=== PATIENT | female | born 1955 | race Caucasian/White ===

== ENCOUNTER 2020-08-05 15:31 | Outpatient (CLI) | payer OTHER, SELFPAY ==
--- NOTE | ~2020-08-05 | XR_ITS ---
XR abdomen/kub 1V DATE: 08/05/2020 16:03 INDICATION: Constipation for one to 2 weeks. TECHNIQUE: AP projection, 2 views COMPARISON: None FINDINGS: There is a prominent amount of fecal material throughout the colon, consistent with clinica l presentation of constipation. No bowel obstruction is evident. The psoas shadows are intact. No visceromegaly is detected. No significant abnormal calcification is noted. Mild rotatory dextroscoliosis of the lumbar spine. The lung bases are clear. Heart size appears normal. IMPRESSION: Prominent amount of fecal material throughout the colon, consistent with clinical present ation of constipation Reviewed, dictated and finalized at Location A. Reviewed, dictated and finalized at location B. ACCOUNTANT IMPRESSION: Prominent amount of fecal material throughout the colon, consistent with clinical presentation of constipation
== END 2020-08-05 15:32 | disposition home or self-care (01) ==
PROVIDERS: PCP Internal Medicine; Visit Provider Internal Medicine
DX: K59.00 Constipation, unspecified (principal)
CPT/HCPCS: 74018

== ENCOUNTER → 2020-08-18 10:25 | Outpatient (CLI) | payer OTHER, SELFPAY ==
--- NOTE | ~2020-08-18 | MM_ITS ---
EXAMINATION: MM diagnostic kaila BI w eleazar HISTORY: Left breast dimpling with inverted nipple. Possible increased inversion recently. TECHNIQUE: Additional 3-D tomosynthesis images of the breasts were performed and synthetic 2-D images were generated. CAD analysis was submitted and interpreted. High resolution bilateral breast ultraso und was performed. COMPARISON: Comparison to multiple prior studies sequentially, with oldest reviewed study dated 12/2015. BREAST PARENCHYMAL COMPOSITION: The breasts are extremely dense, which lowers the sensitivity of mamm ography. FINDINGS: MAMMOGRAPHIC FINDINGS: There is bilateral nipple inversion which appears unchanged from prior studies. There are benign bila teral breast calcifications. There are no new masses, calcifications or architectural distortion to s uggest malignancy. ULTRASOUND: Right breast ultrasound: At 2:00 there is an oval hypoechoic mass measuring 4 mm without significant posterior features. There is parallel orientation. At the same location there is a 6 mm oval hypoecho ic mass with circumscribed margins, enhanced through transmission and no internal vascularity. Left breast ultrasound: Normal heterogeneous echotexture without focal solid or cystic mass. IMPRESSION: 1. Probable benign right breast masses identified by ultrasound. 2. Recommend 6 month follow-up right breast ultrasound BI-RADS category 3, probably benign findings. Reviewed, dictated and finalized at location D. LING SPECIALIST
--- NOTE | ~2020-08-18 | DEXA_ITS ---
Bone Density Report Name: Indiana Hatch Age: 65 Sex: Female Ethnicity: White Date of : 1955 Indication: osteopenia; postmenopausal Referring Provider: CHESTER NIELSEN Study: Bone densitometry was performed. Exam Date: August 18, 2020 Accession number: [id number] Bone Density: Region BMD T-score Z-score Classification AP Spine (L1-L4) 0.772 -2.5 -0.8 Osteoporosis Femoral Neck (Left) 0.602 -2.2 -0.8 Osteopenia Total Hip (Left) 0.724 -1.8 -0.6 Osteopenia Femoral Neck (Right) 0.568 -2.5 -1.1 Osteoporosis Total Hip (Right) 0.662 -2.3 -1.1 Osteopenia Total Hip Mean 0.693 -2.1 -0.9 Osteopenia World Health Organization criteria for BMD impression classify patients as: Normal (T-score at or above -1.0), Osteopenia (T-score between -1.0 and -2.5), or Osteoporosis (T-score at or below -2.5). 10-year Fracture Risk: FRAX not reported because: Some T-score for Spine Total or Hip Total or Femoral Neck at or below -2.5 Previous Exams: Region Exam Age BMD T-score BMD Change BMD Change Date g/cm2 vs Baseline vs Previous AP Spine(L1-L4) 08/18/2020 65 0.772 -2.5 -0.165* -0.029* 03/19/2018 62 0.801 -2.2 -0.136* -0.005 01/14/2015 59 0.805 -2.2 -0.132* -0.002 11/28/2012 57 0.807 -2.2 -0.130* -0.083* 09/26/2010 55 0.890 -1.4 -0.047* -0.026* 09/23/2008 53 0.916 -1.2 -0.021 -0.021 08/02/2005 50 0.937 -1.0 Total Hip(Left) 08/18/2020 65 0.724 -1.8 -0.216* -0.006 03/19/2018 62 0.730 -1.7 -0.211* -0.068* 01/14/2015 59 0.798 -1.2 -0.143* 0.037* 11/28/2012 57 0.761 -1.5 -0.180* -0.063* 09/26/2010 55 0.824 -1.0 -0.117* 0.044* 09/23/2008 53 0.780 -1.3 -0.161* -0.161* 08/02/2005 50 0.941 0.0 Total Hip(Right) 08/18/2020 65 0.662 -2.3 -0.199* -0.002 03/19/2018 62 0.664 -2.3 -0.197* -0.072* 01/14/2015 59 0.736 -1.7 -0.125* 0.031* 11/28/2012 57 0.705 -1.9 -0.156* -0.040* 09/26/2010 55 0.745 -1.6 -0.116* 0.005 09/23/2008 53 0.740 -1.7 -0.121* -0.121* 08/02/2005 50 0.861 -0.7 *Denotes significance at 95% confidence level, LSC for AP Spine = 0.022 g/cm2, LSC for Total Hip = 0.027 g/cm2 Clinical Information Provided by Patient: Patient bekah
--- NOTE | ~2020-08-18 | US_ITS ---
Please refer to diagnostic mammogram report dated 08/18/2020 for details. Reviewed, dictated and finalized at location D. TER SET PRODUCTION DESIGNER
== END ==
PROVIDERS: PCP Internal Medicine; Visit Provider Obstetrics & Gynecology
DX: Z12.31 Encounter for screening mammogram for malignant neoplasm of breast (principal); Z78.0 Asymptomatic menopausal state; R92.8 Other abnormal and inconclusive findings on diagnostic imaging of breast; M81.0 Age-related osteoporosis without current pathological fracture; M85.852 Other specified disorders of bone density and structure, left thigh; M85.851 Other specified disorders of bone density and structure, right thigh
CPT/HCPCS: 76641; 77062; 77066; 77080; G0279

== ENCOUNTER → 2020-11-12 09:07 | Outpatient (CLI) | payer OTHER, SELFPAY ==
--- NOTE | ~2020-11-12 | US_ITS ---
US breast RT complete DATE: 11/12/2020 09:34 INDICATION: Short-term follow-up of 2:00 breast hypoechoic lesions TECHNIQUE: High-resolution ultrasound imaging and color flow imaging targeted to o'clock 4 cm from th e nipple COMPARISON: 08/18/2020 bilateral diagnostic digital mammogram and complete bilateral breast ultrasound examination FINDINGS: There are 2 hypoechoic lesions at 2:00 4 cm from the nipple, measuring up to approximately 5 and 6 mm maximal dimension, without internal vascularity or suspicious shadowing. These appear esse ntially stable compared to 08/18/2020. IMPRESSION: BI-RADS Category 3: Probably benign Recommendation: 6 month follow-up right breast ultrasound examination Reviewed, dictated and finalized at Location A. Reviewed, dictated and finalized at location A.
== END ==
PROVIDERS: PCP Internal Medicine; Visit Provider Obstetrics & Gynecology
DX: R92.8 Other abnormal and inconclusive findings on diagnostic imaging of breast (principal)
CPT/HCPCS: 76641

== ENCOUNTER → 2021-05-16 10:17 | Outpatient (CLI) | payer OTHER, SELFPAY ==
--- NOTE | ~2021-05-16 | US_ITS ---
US breast RT limited DATE: 05/16/2021 10:32 INDICATION: Six-month follow-up of 2 hypoechoic lesions at 2:00 4 cm from nipple noted on 11/12/2020 r ight breast ultrasound examination TECHNIQUE: Real-time imaging targeted at 2:00 region COMPARISON: 11/12/2020 complete right breast ultrasound 08/18/2020 bilateral complete breast ultrasound FINDINGS: Circumscribed hypoechoic lesion with through transmission and posterior enhancement at 2:00 4 cm from the nipple measuring 3.8 x 5.4 mm is slightly diminished in size from up to 6 mm dimension on 09/04/2020. No other suspicious mass or any suspicious shadowing is evident. IMPRESSION: BI-RADS Category 2: Benign Recommendation: Routine annual mammographic screening Reviewed, dictated and finalized at Location A. Reviewed, dictated and finalized at location A.
== END ==
PROVIDERS: PCP Internal Medicine; Visit Provider Obstetrics & Gynecology
DX: R92.8 Other abnormal and inconclusive findings on diagnostic imaging of breast (principal)
CPT/HCPCS: 76642

== ENCOUNTER → 2022-02-13 13:26 | Outpatient (CLI) | payer MEDICARE, OTHER, SELFPAY ==
--- NOTE | ~2022-02-13 | MM_ITS ---
EXAMINATION: MM screening [facility] BI w eleazar HISTORY: Screening mammogram TECHNIQUE: Craniocaudal and mediolateral oblique 3-D tomosynthesis images were obtained and synthetic 2-D images were generated. CAD analysis was submitted and interpreted. COMPARISON: 09/04/2020, 08/22/2018 BREAST PARENCHYMAL COMPOSITION: The breasts are extremely dense, which lowers the sensitivity of mamm ography. FINDINGS: Scattered benign-appearing calcifications are present. There is no suspicious mass, calcifi cation, or architectural distortion to suggest malignancy in either breast. There has been no suspici ous interval change. IMPRESSION: 1. No mammographic evidence of malignancy. 2. Recommend routine screening mammography in one year. BI-RADS Category 2: Benign finding(s). Reviewed, dictated and finalized at location A.
== END ==
PROVIDERS: PCP Internal Medicine; Visit Provider Obstetrics & Gynecology
DX: Z12.31 Encounter for screening mammogram for malignant neoplasm of breast (principal)
CPT/HCPCS: 77063; 77067

== ENCOUNTER → 2022-08-28 10:49 | Outpatient (CLI) | payer MEDICARE, OTHER, SELFPAY ==
--- NOTE | ~2022-08-28 | DEXA_ITS ---
Bone Density Report Name: DARREL REID Age: 67 Sex: Female Ethnicity: White Date of : 1955 Indication: postmenopausal osteoporosis; monitoring treatment; parental hip fracture; Referring Provider: CHESTER NIELSEN Study: Bone densitometry was performed. Exam Date: August 28, 2022 Accession number: [id number] Bone Density: Region BMD T-score Z-score Classification AP Spine (L1-L4) 0.809 -2.2 -0.3 Osteopenia Femoral Neck (Left) 0.609 -2.2 -0.6 Osteopenia Total Hip (Left) 0.745 -1.6 -0.3 Osteopenia Femoral Neck (Right) 0.590 -2.3 -0.8 Osteopenia Total Hip (Right) 0.688 -2.1 -0.8 Osteopenia Total Hip Mean 0.717 -1.9 -0.6 Osteopenia World Health Organization criteria for BMD impression classify patients as: Normal (T-score at or above -1.0), Osteopenia (T-score between -1.0 and -2.5), or Osteoporosis (T-score at or below -2.5). 10-year Fracture Risk: FRAX not reported because: Treated for osteoporosis Previous Exams: Region Exam Age BMD T-score BMD Change BMD Change Date g/cm2 vs Baseline vs Previous AP Spine(L1-L4) 08/28/2022 67 0.809 -2.2 -0.128* 0.037* 08/18/2020 65 0.772 -2.5 -0.165* -0.029* 03/19/2018 62 0.801 -2.2 -0.136* -0.005 01/14/2015 59 0.805 -2.2 -0.132* -0.002 11/28/2012 57 0.807 -2.2 -0.130* -0.083* 09/26/2010 55 0.890 -1.4 -0.047* -0.026* 09/23/2008 53 0.916 -1.2 -0.021 -0.021 08/02/2005 50 0.937 -1.0 Total Hip(Left) 08/28/2022 67 0.745 -1.6 -0.196* 0.021 08/18/2020 65 0.724 -1.8 -0.216* -0.006 03/19/2018 62 0.730 -1.7 -0.211* -0.068* 01/14/2015 59 0.798 -1.2 -0.143* 0.037* 11/28/2012 57 0.761 -1.5 -0.180* -0.063* 09/26/2010 55 0.824 -1.0 -0.117* 0.044* 09/23/2008 53 0.780 -1.3 -0.161* -0.161* 08/02/2005 50 0.941 0.0 Total Hip(Right) 08/28/2022 67 0.688 -2.1 -0.173* 0.026 08/18/2020 65 0.662 -2.3 -0.199* -0.002 03/19/2018 62 0.664 -2.3 -0.197* -0.072* 01/14/2015 59 0.736 -1.7 -0.125* 0.031* 11/28/2012 57 0.705 -1.9 -0.156* -0.040* 09/26/2010 55 0.745 -1.6 -0.116* 0.005 09/23/2008 53 0.740 -1.7 -0.121* -0.121* 08/02/2005 50 0.861 -0.7 *Denotes significance at 95% confidence level, [facility]
== END ==
PROVIDERS: PCP Family Medicine; Visit Provider Obstetrics & Gynecology
DX: Z78.0 Asymptomatic menopausal state (principal); M85.88 Other specified disorders of bone density and structure, other site; M85.852 Other specified disorders of bone density and structure, left thigh; M85.851 Other specified disorders of bone density and structure, right thigh
CPT/HCPCS: 77080

== ENCOUNTER → 2023-02-26 10:26 | Outpatient (CLI) | payer MEDICARE, OTHER, SELFPAY ==
--- NOTE | ~2023-02-26 | MM_ITS ---
EXAMINATION: MM screening kaila BI w eleazar HISTORY: Screening mammogram TECHNIQUE: Craniocaudal and mediolateral oblique 3-D tomosynthesis images were obtained and synthetic 2-D images were generated. CAD analysis was submitted and interpreted. COMPARISON: 02/13/2022 bilateral screening mammogram 05/16/2021 right Limited breast ultrasound 11/12/2020 complete right breast ultrasound 08/18/2020 diagnostic bilateral mammogram and complete bilateral breast ultrasound examination 04/24/2019 bilateral screening mammogram BREAST PARENCHYMAL COMPOSITION: The breasts are extremely dense, which lowers the sensitivity of mamm ography. FINDINGS: Biopsy marker on the right; history of prior benign right breast biopsy. Scattered bilateral benign calcifications. There is no evidence of suspicious mass, calcification, or architectural distortion to suggest malig henrietta in either breast. There has been no suspicious interval change. IMPRESSION: 1. No mammographic evidence of malignancy. 2. Recommend routine screening mammography in one year. BI-RADS Category 2: Benign finding(s). Reviewed, dictated and finalized at location A.
== END ==
PROVIDERS: PCP Family Medicine; Visit Provider Obstetrics & Gynecology
DX: Z12.31 Encounter for screening mammogram for malignant neoplasm of breast (principal)
CPT/HCPCS: 77063; 77067

== ENCOUNTER 2023-08-23 08:39 | Outpatient (CLI) | payer MEDICARE, OTHER, SELFPAY ==
[2023-08-23 19:10] LABS: Alanine Aminotransferase 19 U/L (6-35); Albumin Level 4.2 g/dL (3.5-5.1); Alkaline Phosphatase 49 U/L (38-126); Anion Gap 3 mmol/L (8-16); Aspartate Amino Transferase 36 U/L (14-36); Bilirubin,Total 0.8 mg/dL (0.2-1.3); Blood Urea Nitrogen 14 mg/dL (7-17); Calcium 9.6 mg/dL (8.4-10.2); Carbon Dioxide 31 mmol/L (22-30); Chloride 102 mmol/L (98-107); Cholesterol 218 mg/dL (0-200); Estimated Glomerular Filt Rate > 60; Glucose 95 mg/dL (65-110); HDL Direct 83 mg/dL; Potassium 4.3 mmol/L (3.4-5.0); Sodium 136 mmol/L (137-145); Triglycerides 61 mg/dL (<150)
[2023-08-23 19:20] LABS: LDL Cholesterol Direct 105 mg/dL
[2023-08-23 19:37] LABS: Basophils Percent Auto 0.9 % (0.2-1.2); Eosinophils Absolute Auto 0.1 K/mm3 (0-0.3); Eosinophils Percent Auto 1.4 % (0-4.4); Hematocrit 40.1 % (37.0-47.0); Hemoglobin 12.8 g/dL (12.0-15.0); Lymphocytes Absolute Auto 1.87 K/mm3 (0.9-3.2); Lymphocytes Percent Auto 53.7 % (18.3-44.2); Mean Corpuscular HGB Conc 31.9 g/dl (32-36); Mean Corpuscular Hemoglobin 30.3 pg (26-34); Mean Corpuscular Volume 94.8 fl (80-100); Mean Platelet Volume 10.2 fl (7.4-10.4); Monocytes Absolute Auto 0.2 K/mm3 (0.1-0.6); Monocytes Percent Auto 6.6 % (2.6-8.5); Neutrophils Absolute Auto 1.3 K/mm3 (1.3-6.7); Neutrophils Percent Auto 37.4 % (45.5-73.1); Platelet Count Result 224 k/mm3 (150-375); Red Blood Count 4.23 M/mm3 (4.2-5.4); Red Cell Distribution Width 13.3 % (11.5-14.5); White Blood Count 3.5 K/mm3 (4.5-10.0)
== END 2023-08-23 08:40 | disposition home or self-care (01) ==
LOC: ANHGOSHLAB 08:42
PROVIDERS: PCP Family Medicine; Visit Provider Family Medicine
DX: E78.5 Hyperlipidemia, unspecified (principal); R53.83 Other fatigue; Z13.228 Encounter for screening for other metabolic disorders; Z13.29 Encounter for screening for other suspected endocrine disorder
CPT/HCPCS: 36415; 80053; 80061; 84443; 85025

== ENCOUNTER 2024-03-18 15:20 | Outpatient (CLI) | payer MEDICARE, OTHER, SELFPAY ==
--- NOTE | ~2024-03-18 | MM_ITS ---
EXAMINATION: MM screening kaila BI w eleazra HISTORY: Screening TECHNIQUE: Craniocaudal and mediolateral oblique 3-D tomosynthesis images were obtained and synthetic 2-D images were generated. CAD analysis was submitted and interpreted. COMPARISON: Comparison to multiple prior studies sequentially, with oldest reviewed study dated 03/18. BREAST PARENCHYMAL COMPOSITION: Dense: The breasts are extremely dense, which lowers the sensitivity of mammography. FINDINGS: There is no evidence of suspicious mass, calcification, or architectural distortion to sugg est malignancy in either breast. There has been no suspicious interval change. IMPRESSION: 1. No mammographic evidence of malignancy. 2. Recommend routine screening mammography in one year. BI-RADS Category 1: Negative Reviewed, dictated and finalized at location B.
== END 2024-03-18 15:21 | disposition home or self-care (01) ==
PROVIDERS: PCP Family Medicine; Visit Provider Obstetrics & Gynecology
DX: Z12.31 Encounter for screening mammogram for malignant neoplasm of breast (principal)
CPT/HCPCS: 77063; 77067

== ENCOUNTER 2024-11-19 10:11 | Outpatient (CLI) | payer MEDICARE, OTHER, SELFPAY ==
--- NOTE | ~2024-11-19 | DEXA_ITS ---
Bone Density Report Name: DARREL REID Age: 69 Sex: Female Ethnicity: White Date of : 1955 Indication: osteopenia; monitoring treatment; parental hip fracture; height loss; Referring Provider: CHESTER NIELSEN Study: Bone densitometry was performed. Exam Date: November 19, 2024 Accession number: [id number] Bone Density: Region BMD T-score Z-score Classification AP Spine(L1-L4) 0.798 -2.3 -0.3 Osteopenia Femoral Neck (Left) 0.620 -2.1 -0.4 Osteopenia Total Hip (Left) 0.747 -1.6 -0.2 Osteopenia Femoral Neck (Right) 0.572 -2.5 -0.8 Osteoporosis Total Hip (Right) 0.679 -2.2 -0.7 Osteopenia Total Hip Mean 0.713 -1.9 -0.5 Osteopenia World Health Organization criteria for BMD impression classify patients as: Normal (T-score at or above -1.0), Osteopenia (T-score between -1.0 and -2.5), or Osteoporosis (T-score at or below -2.5). 10-year Fracture Risk: FRAX not reported because: Some T-score for Spine Total or Hip Total or Femoral Neck at or below -2.5 Treated for osteoporosis Previous Exams: -- Region Exam Age BMD T-score BMD Change BMD Change Date g/cm2 vs Baseline vs Previous -- AP Spine (L1-L4) 11/19/2024 69 0.798 -2.3 -14.9%* -1.4% 08/28/2022 67 0.809 -2.2 -13.7%* 4.8%* 08/18/2020 65 0.772 -2.5 -17.6%* -3.6%* 03/19/2018 62 0.801 -2.2 -14.6%* -0.6% 01/14/2015 59 0.805 -2.2 -14.1%* -0.2% 11/28/2012 57 0.807 -2.2 -13.9%* -9.3%* 09/26/2010 55 0.890 -1.4 -5.0%* -2.9%* 09/23/2008 53 0.916 -1.2 -2.2% -2.2% 08/02/2005 50 0.937 -1.0 Total Hip(Left) 11/19/2024 69 0.747 -1.6 -20.6%* 0.2% 08/28/2022 67 0.745 -1.6 -20.8%* 2.9% 08/18/2020 65 0.724 -1.8 -23.0%* -0.8% 03/19/2018 62 0.730 -1.7 -22.4%* -8.5%* 01/14/2015 59 0.798 -1.2 -15.2%* 4.8%* 11/28/2012 57 0.761 -1.5 -19.1%* -7.6%* 09/26/2010 55 0.824 -1.0 -12.4%* 5.7%* 09/23/2008 53 0.780 -1.3 -17.1%* -17.1%* 08/02/2005 50 0.941 0.0 Total Hip(Right) 11/19/2024 69 0.679 -2.2 -21.1%* -1.3% 08/28/2022 67 0.688 -2.1 -20.1%* 4.0% 08/18/2020 65 0.662 -2.3 -23.1%* -0.3% 03/19/2018 62 0.664 -2.3 -22.9%* -9.8%* 01/14/2015 59 0.736 -1.7 -14.5%* 4.4%* 11/28/2012 57 0.705 -1.9 -18.1%* -5.4%* 09/26/2010 55 0.745 -1.6 -13.5%* 0.7% 09/23/2008 53 0.740 -1.7 -14.1%* -14.1%* 08/02/2005 50 0.861 -0.7 -- *Denotes significance at 95% confidence level, LSC for AP Spine = 0.022 g/cm2, LSC for Total Hip = 0.027 g/cm2 Clinical Information Provided by Patient: Parent has had a hip fracture Is being treated for osteoporosis Has used the following medications: Boniva (i.e. ibandronate), Vitamin D, Calcium Patient maximum height was 69 Menopause Age: 50 Onset of menses at age 14 Number of children 0 Impression: The patient has osteoporosis, based on the Right Femoral Neck T-score. The patient has risk factors, including: parental hip fracture. No significant bone loss was observed. Discussion: PATIENT UNDER TREATMENT WITH NO SIGNIFICANT BMD LOSS SINCE LAST EXAM. In an untreated patient, BMD typically declines with age. A lack of decline or gain is usually a sign that treatment is efficacious and fracture risk is reduced. It is important to ask patients whether they are taking their medications and to encourage continued and appropriate compliance with their osteoporosis therapies to reduce fracture risk. It is also important to review their risk factors and encourage appropriate calcium and vitamin D intakes, exercise, fall prevention and other lifestyle measures. Follow-Up: Consider a repeat BMD and Vertebral Fracture Assessment (VFA) exam in 2 years or sooner if medically necessary, to reassess this patient's status. Reported by: DAWNA on 11/19/2024 10:35:00 AM. Reviewed, dictated and finalized at location A.
== END 2024-11-19 10:12 | disposition home or self-care (01) ==
PROVIDERS: PCP Family Medicine; Visit Provider Obstetrics & Gynecology
DX: Z78.0 Asymptomatic menopausal state (principal); Z13.820 Encounter for screening for osteoporosis; M85.88 Other specified disorders of bone density and structure, other site; M85.852 Other specified disorders of bone density and structure, left thigh; M85.851 Other specified disorders of bone density and structure, right thigh; M81.0 Age-related osteoporosis without current pathological fracture
CPT/HCPCS: 77080

== ENCOUNTER 2025-04-29 09:44 | Outpatient (CLI) | payer MEDICARE, OTHER, SELFPAY ==
--- NOTE | ~2025-04-29 | MM_ITS ---
EXAMINATION: MM screening [facility] BI w eleazar HISTORY: Screening TECHNIQUE: Craniocaudal and mediolateral oblique 3-D tomosynthesis images were obtained and synthetic 2-D images were generated. CAD analysis was submitted and interpreted. COMPARISON: Comparison to multiple prior studies sequentially, with oldest reviewed study dated 03/06/2018. BREAST PARENCHYMAL COMPOSITION: Dense: The breasts are extremely dense, which lowers the sensitivity of mammography. FINDINGS: There is a new mass in the upper outer quadrant of the right breast, posterior third. There are adjacent punctate indeterminate calcifications. The left breast is stable without evidence for malignancy. IMPRESSION: 1. New right breast mass upper outer quadrant, posterior third. 2. Spot MLO, exaggerated CC and mediolateral views of the right breast with possible additional ultrasound recommended. BI-RADS Category 0: Incomplete: Needs additional imaging evaluation. Reviewed, dictated and finalized at location B. ITY COORDINATOR IMPRESSION: 1. New right breast mass upper outer quadrant, posterior third. 2. Spot MLO, exaggerated CC and mediolateral views of the right breast with pos sible additional ultrasound recommended. BI-RADS Category 0: Incomplete: Needs additional imaging evaluation.
== END 2025-04-29 09:45 | disposition home or self-care (01) ==
LOC: MICIMG 09:46
PROVIDERS: PCP Obstetrics & Gynecology; Visit Provider Family Medicine
DX: Z12.31 Encounter for screening mammogram for malignant neoplasm of breast (principal); R92.8 Other abnormal and inconclusive findings on diagnostic imaging of breast
CPT/HCPCS: 77063; 77067

== ENCOUNTER 2025-06-09 09:35 | Outpatient (CLI) | payer MEDICARE, OTHER, SELFPAY ==
--- NOTE | ~2025-06-09 | MMUS_ITS ---
EXAMINATION: MM diagnostic kaila RT w eleazar, Additional imaging US, US breast RT limited HISTORY: Additional imaging TECHNIQUE: Craniocaudal and mediolateral oblique 3-D tomosynthesis images were obtained and synthetic 2-D images were generated. CAD analysis was submitted and interpreted. Grayscale sonography over the area(s) of interest with color Doppler if there is a finding. COMPARISON: April 29 BREAST PARENCHYMAL COMPOSITION: Dense: The breasts are extremely dense, which may obscure noncalcified lesions. MAMMOGRAM FINDINGS: A mass persists in the approximately 12:00 position. There is associated architectural distortion with a few calcifications present. It is in the posterior depth. No unexplained architectural distortion is seen. There are no skin or nipple abnormalities identified. There is no adenopathy seen on the images submitted. ULTRASOUND FINDINGS: Sonography through the 12:00 position of the right breast demonstrates a heterogeneous mass, deep in location, abutting the pectoralis muscle, and inseparable from it sonographically. Most of the mass is hypoechoic, although heterogeneous. There is an echogenic halo. There is probable neovascularity. The maximum dimension is 2.5 cm. This accounts for the mammographic mass. Benign-appearing lymph nodes are seen in the right axilla and at 9:00 in the posterior depth. There is no cortical thickening in any event lymph nodes seen. IMPRESSION: Mass in the right breast for which ultrasound-guided core biopsy is recommended. BI-RADS 5 - Highly suggestive of malignancy - appropriate action should be taken. Reviewed, dictated and finalized at location A. RWRITING ACCOUNT REPRESENTATIVE IMPRESSION: Mass in the right breast for which ultrasound-guided core biopsy is recommended . BI-RADS 5 - Highly suggestive of malignancy - appropriate action should be take n.
--- OUTSIDE RECORDS SUMMARY | 2025-06-09 10:00 | XMS_ITS | Encounter Summary ---
Author Organization [facility] Health Address [address] [place] [address] Care Team Providers Care Rubber Stamps And Dies Supervisor Name Role Phone Unavailable Primary Care Provider Unavailabl e Encounter Details Date Type Department Care Team (Late st Contact Info) Description 12/18/2018 Lab Requisition [facility] Care DermPath Lab [address] [place] [id number] Aris Troncoso MD [address] [place] [address] Social History Tobacco Use Types Packs/Day Years Used Date Smoking Tobacco: Never Assessed Comments Unknown Sex and Gender Information Value Date Recorded Sex Assigned at Not on file Legal Sex Female 5:34 PM CREDIT 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 Gender Identity Not on file Sexual Orientation Not on file documented as of this encounter Plan of Treatment Not on file documented as of this encounter Procedures Procedure Name Priority Date/Time Associated Diagnosis Comments DERMATOPATHOLOGY Routine 12/17/2018 12:0 0 AM CDT documented in this encounter Results * DERMATOPATHOLOGY (12/17/2018 12:00 AM CDT) Case Report Dermatopathology Report Case: [id number] Authorizing Provider: Aris Troncoso MD Collected: 12/17/2018 12:00 AM Pathologist: Alexis Borrero MD Received: 12/18/2018 01:49 PM Specimen: Skin, left side neck at base 9 12:03 PM CDT DERMATOPATHOLOGY LABORATORY Final Diagnosis Specimen A. SKIN, left side neck at base: GRANULOMATOUS DERMATITIS CONSISTENT WITH A RUPTURED CYST OR HAIR FOLLICLE (L72.0) 9 12:03 PM CDT DERMATOPATHOLOGY LABORATORY at 1203 CDT Clinical History R/O BCC, ISK. 12:03 PM CDT DERMATOPATHOLOGY LABORATORY Gross Description Specimen A: Received is one formalin filled container labeled with the patient's name and designated left side neck at base. The specimen consists of a shave biopsy measuring [id number]. Jar 0. 12:03 PM CDT DERMATOPATHOLOGY LABORATORY Microscopic Description Specimen A. SKIN, left side neck at base: Neutrophils, histiocytes, and multinucleated giant cells are present within the dermis. 12:03 PM CDT DERMATOPATHOLOGY LABORATORY Disclaimer An external and internal positive and negative controls are appropriate for the histochemical, immunohistochemical and immunofluorescence stain(s) in this case (if any), except where stated explicitly. The performance characteristics of the stain(s) cited in this report were developed and its performance characteristic determined by the Dermatopathology Laboratory at [facility], directed by Dr. Isaac Borrero. These tests need not be, and therefore are not, approved by the [place] Food and Drug Administration. The tests are used for clinical purposes. Billing Codes Specimen Charges Stain Charges 71800 1 9 12:03 PM CDT DERMATOPATHOLOGY LABORATORY Embedded Images 12:03 PM CDT DERMATOPATHOLOGY LABORATORY Pathology/Cytolog y TISSUE SPECIMEN FROM SKIN / Unknown 12/17/2018 12/18/2018 1:49 PM CDT Aris Troncoso MD LAB - PATHOLOGY/CYTOLOGY ORD ERABLES Final Result DERMATOPATHOLOGY LABORATORY [facility] - Department of Dermatology [address] [place] [address], [facility] [phone] documented in this encounter Visit Diagnoses Not on filedocumented in this encounter
--- OUTSIDE RECORDS SUMMARY | 2025-06-09 10:00 | XMS_ITS | Clinical Summary ---
Author Organization [facility] Address [address] [place]: Epic Prelude ADT [place] [address] Care Team Providers Care Manager Talent Name Role Phone Unavailable Primary Care Provider Unavailabl e Encounters Date Type Department Care Team Description 04/15/2025 External Device Data STL ABSTRACTION Provider, Abstract from Last 3 Months Immunizations Immunization Administration Dates Next Due (PREVNAR 20)(6 WKS UP) PNEUM OCOCCAL CONJUGATE VACCINE 20-VALENT (PCV20), POLYSACCHARIDE [id number] CONJUGATE, ADJUVANT 0.5 ML (PF) IM 07/10/2022 INFLUENZA VACCINE HIGH DOSE QUADRIVALENT 65 YR UP PF IM 04/11/2023,04/24/2022 INFLUENZA VACCINE HIGH DOSE TRIVALENT SPLIT VIRUS, (65 YR UP), 0.5ML (PF), IM 04/03/2025,04/03/2024 Social History Tobacco Use Types Packs/Day Years Used Date Smoking Tobacco: Never Assessed Comments Unknown Sex and Gender Information Value Date Recorded Sex Assigned at Not on file Legal Sex Female 3:27 PM CDT Gender Identity Not on file Sexual Orientation Not on file Plan of Treatment Health Maintenance Due Date Last Done Comments DTAP/TDAP/TD VACCINES (1 - Tdap) 1975 BREAST CANCER SCREENING 1996 COLORECTAL SCREENING 2001 Colorectal Cancer Screening 2001 FIT-DNA Q 3 years 2001 FIT/FOBT Q 1 year 2001 Flex Sig/CT Colonography Q 5 years 2001 ZOSTER VACCINE (1 of 2) 2006 OSTEOPOROSIS SCREENING 2021 RSV VACCINE (60+ or ) (1 - 1-dose 75+ series) 2031 PNEUMOCOCCAL VACCINE 50+ YEARS Completed 07/10/2022 INFLUENZA VACCINE Completed 04/03/2025, , 04/11/2023, Additional history exists Insurance [employer]
--- OUTSIDE RECORDS SUMMARY | 2025-06-09 10:00 | XMS_ITS | Encounter Summary ---
Author Organization [facility] Address [address] [place] [address] Care Team Providers Care Animal Nutrition Consultant Name Role Phone Unavailable Primary Care Provider Unavailabl e Encounter Details Date Type Department Care Team (Late st Contact Info) Description 08/17/2022 Lab Requisition [facility] DermPath Lab [address] [place] [id number] Aris Troncoso MD [address] [place] [address] Social History Tobacco Use Types Packs/Day Years Used Date Smoking Tobacco: Never Assessed Comments Unknown Sex and Gender Information Value Date Recorded Sex Assigned at Not on file Legal Sex Female 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 Gender Identity Not on file Sexual Orientation Not on file documented as of this encounter Plan of Treatment Not on file documented as of this encounter Procedures Procedure Name Priority Date/Time Associated Diagnosis Comments DERMATOPATHOLOGY Routine 08/16/2022 3:33 AM MAINTENANCE SHOP TECHNICIAN documented in this encounter Results * DERMATOPATHOLOGY (08/16/2022 3:33 AM MAINTENANCE SHOP TECHNICIAN) Case Report Dermatopathology Report Case: [id number] Authorizing Provider: Aris Troncoso MD Collected: 08/16/2022 03:33 AM Ordering Location: [facility] DermPath Lab Received: 08/17/2022 02:18 PM Pathologist: Meggan Hirsch MD Specimen: Skin, dorsal left lateral hand 1:51 PM MAINTENANCE SHOP TECHNICIAN DERMATOPATHOLOGY LABORATORY Final Diagnosis Specimen A. SKIN, dorsal left lateral hand: DERMAL SCAR (L90.5) 1:51 PM MAINTENANCE SHOP TECHNICIAN DERMATOPATHOLOGY LABORATORY at 1351 MAINTENANCE SHOP TECHNICIAN Clinical History R/O Nevus scar angiofibroma 3 1:51 PM [facility] DERMATOPATHOLOGY LABORATORY Gross Description Specimen A: Received is one formalin filled container labeled with the patient's name and designated dorsal left lateral hand. The specimen consists of a shave biopsy measuring 4x3x1 mm. Jar 0. 3 1:51 PM [facility] DERMATOPATHOLOGY LABORATORY Microscopic Description Specimen A. SKIN, dorsal left lateral hand: There are fibroblasts and collagen bundles oriented parallel to the skin surface with elongated blood vessels, some of which are oriented perpendicular to the skin surface. 3 1:51 PM [facility] DERMATOPATHOLOGY LABORATORY Disclaimer An external and internal positive and negative controls are appropriate for the histochemical, immunohistochemical and immunofluorescence stain(s) in this case (if any), except where stated explicitly. The performance characteristics of the stain(s) cited in this report were developed and its performance characteristic determined by the Dermatopathology Laboratory at [facility], directed by Dr. Isaac Borrero. These tests need not be, and therefore are not, approved by the [place] Food and Drug Administration. The tests are used for clinical purposes. Billing Codes Specimen Charges Stain Charges 76398 1 3 1:51 PM MAINTENANCE SHOP TECHNICIAN DERMATOPATHOLOGY LABORATORY Embedded Images 3 1:51 PM [facility] DERMATOPATHOLOGY LABORATORY Pathology/Cytolo gy TISSUE SPECIMEN FROM SKIN / Unknown 08/16/2022 3:33 AM MAINTENANCE SHOP TECHNICIAN 08/17/2022 2:18 PM MAINTENANCE SHOP TECHNICIAN Aris Troncoso MD LAB - PATHOLOGY/CYTOLOGY ORD ERABLES Final Result DERMATOPATHOLOGY LABORATORY [facility] - Department of Dermatology Formerly [facility] Medicine [address] [place] [address], [address] [phone] documented in this encounter Visit Diagnoses Not on filedocumented in this encounter
--- OUTSIDE RECORDS SUMMARY | 2025-06-09 10:00 | XMS_ITS | Clinical Summary ---
Author Organization [facility] Address [address] [place] [address] Care Team Providers Care Computer System Technician Name Role Phone Unavailable Primary Care Provider Unavailabl e Source Comments [facility],non-owned Affiliates and Associated Physician Practices is amultiple site organization consisting of ambulatory clinics and hospital sitesin [place], [place], [place] and [place]. This disclosure is being madepursuant to the Care Everywhere program and may not contain all information available regarding this patient. Last updated 18.[facility] Encounters Date Type Department Care Team Description 05/28/2025 Telephone [facility] [address] [place] [address], [address] [phone] Matt Andrews APRN-GERARD Returned Call 05/25/2025 Telephone [facility] [id number] [place] [address], [facility] [address] [place] [address] Matt Andrews, CELINA-GERARD Referral from Last 3 Months Social History Tobacco Use Types Packs/Day Years Used Date Smoking Tobacco: Never Assessed Comments Unknown Sex and Gender Information Value Date Recorded Sex Assigned at Not on file 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 Gender Identity Not on file Sexual Orientation Not on file Plan of Treatment Health Maintenance Due Date Last Done Comments BONE DENSITY TESTING 1956 COLOGUARD (AGES 45-75) - COL ON CA SCREENING 1956 COLON MONITORING 1956 COLONOSCOPY - COLON CA SCREENING 1956 CT COLONOGRAPHY - COLON CA SCREENING 1956 Colorectal Cancer Screening 1956 FIT - COLON CA SCREENING 1956 FLEX SIG - COLON CA SCREENING 1956 LIPID TESTING 1956 MAMMOGRAM 1956 HEPATITIS C SCREENING 07/20/1974 DTAP/TDAP/TD VACCINES (1 - Tdap) 1975 PNEUMOCOCCAL VACCINE 50+ (1 of 1 - PCV) 2006 ZOSTER VACCINE (1 of 2) 2006 DEPRESSION SCREENING 06/18/2024 COVID-19 VACCINE (1 - 2024-2 6 season) 2025 INFLUENZA VACCINE (#1) 2025 Respiratory Syncytial Virus (RSV) Vaccine Pt: or over 60 yrs (1 - 1-dose 75+ series) 2031 HEPATITIS B VACCINE Aged Out No longe r eligible based on patient's age to complete this topic HIB VACCINE Aged Out No longer eligi ble based on patient's age to complete this topic HPV VACCINE Aged Out No longer eligi ble based on patient's age to complete this topic MENINGOCOCCAL (Group B) VACC INE SHARED DECISION-MAKING Aged Out No longer eligibl e based on patient's age to complete this topic MENINGOCOCCAL GROUPS A/C/Y/W VACCINE Aged Out No longer eligible b ased on patient's age to complete this topic Insurance MEDICARE [facility] Hospital/[facility] Address: [address] [place] [address]
--- OUTSIDE RECORDS SUMMARY | 2025-06-09 10:00 | XMS_ITS | Encounter Summary ---
Author Organization [facility] Address [address] [facility] [place] [address] Care Team Providers Care Agricultural Appraiser Name Role Phone Unavailable Primary Care Provider Unavailabl e Encounter Details Date Type Department Care Team (Late st Contact Info) Description 04/12/2022 Lab Requisition [facility] DermPath Lab [address] [place] [phone] Aris Troncoso MD [address] [place] [address] Social History Tobacco Use Types Packs/Day Years Used Date Smoking Tobacco: Never Assessed Comments Unknown Sex and Gender Information Value Date Recorded Sex Assigned at Not on file Legal 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 Gender Identity Not on file Sexual Orientation Not on file documented as of this encounter Plan of Treatment Not on file documented as of this encounter Procedures Procedure Name Priority Date/Time Associated Diagnosis Comments DERMATOPATHOLOGY Routine 04/11/2022 12:0 0 AM CDT documented in this encounter Results * DERMATOPATHOLOGY (04/11/2022 12:00 AM CDT) Case Report Dermatopathology Report Case: [id number] Authorizing Provider: Aris Troncoso MD Collected: 04/11/2022 12:00 AM Ordering Location: [facility] DermPath Lab Received: 04/12/2022 01:16 PM Pathologist: Meggan Hirsch MD Specimen: Skin, left side nose 3:02 PM CDT DERMATOPATHOLOGY LABORATORY Final Diagnosis Specimen A. SKIN, left side nose: ANGIOFIBROMA (FIBROUS PAPULE) (D21.0) (see microscopic description) 3:02 PM CDT DERMATOPATHOLOGY LABORATORY at 1502 CDT Clinical History R/O Fibrous Papule of the nose 3:02 PM CDT DERMATOPATHOLOGY LABORATORY Gross Description Specimen A: Received is one formalin filled container labeled with the patient's name and designated left side nose. The specimen consists of a shave biopsy measuring 0l5o8vo. Jar 0. 3:02 PM CDT DERMATOPATHOLOGY LABORATORY Microscopic Description Specimen A. SKIN, left side nose: This dome-shaped lesion contains dilated blood vessels, coarse collagen bundles, and stellate fibroblasts. Additional deeper sections were obtained and reviewed. 3:02 PM CDT DERMATOPATHOLOGY LABORATORY Disclaimer An external and internal positive and negative controls are appropriate for the histochemical, immunohistochemical and immunofluorescence stain(s) in this case (if any), except where stated explicitly. The performance characteristics of the stain(s) cited in this report were developed and its performance characteristic determined by the Dermatopathology Laboratory at [facility], directed by Dr. Isaac Borrero. These tests need not be, and therefore are not, approved by the [place] Food and Drug Administration. The tests are used for clinical purposes. Billing Codes Specimen Charges Stain Charges 63381 1 2 3:02 PM CDT DERMATOPATHOLOGY LABORATORY Embedded Images 3:02 PM CDT DERMATOPATHOLOGY LABORATORY Pathology/Cytolog y TISSUE SPECIMEN FROM SKIN / Unknown 04/11/2022 04/12/2022 1:16 PM CDT us Aris Troncoso MD LAB - PATHOLOGY/CYTOLOGY ORD ERABLES Final Result DERMATOPATHOLOGY LABORATORY [facility] - Department of Dermatology [address], [address] [phone] documented in this encounter Visit Diagnoses Not on filedocumented in this encounter
--- OUTSIDE RECORDS SUMMARY | 2025-06-09 10:00 | XMS_ITS | Encounter Summary ---
Author Organization [facility] Address [address] [place] [address] Care Team Providers Care Any Commodity Sales Deliverer Name Role Phone Unavailable Primary Care Provider Unavailabl e Encounter Details Date Type Department Care Team (Late st Contact Info) Description 03/31/2021 Lab Requisition [facility] DermPath Lab [address] [place] [phone] Aris Troncoso MD [address] [place] [address] Social History Tobacco Use Types Packs/Day Years Used Date Smoking Tobacco: Never Assessed Comments Unknown Sex and Gender Information Value Date Recorded Sex Assigned at Not on file 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 Gender Identity Not on file Sexual Orientation Not on file documented as of this encounter Plan of Treatment Not on file documented as of this encounter Procedures Procedure Name Priority Date/Time Associated Diagnosis Comments DERMATOPATHOLOGY Routine 03/29/2021 12:0 0 AM CDT documented in this encounter Results * DERMATOPATHOLOGY (03/29/2021 12:00 AM CDT) Case Report Dermatopathology Report Case: [id number] Authorizing Provider: Aris Troncoso MD Collected: 03/29/2021 12:00 AM Ordering Location: [facility] DermPath Lab Received: 03/31/2021 08:19 AM Pathologist: Ledy Solano MD Specimen: Skin, right taoist 5:32 PM CDT DERMATOPATHOLOGY LABORATORY Final Diagnosis Specimen A. SKIN, right taoist: ACTINIC KERATOSIS, PIGMENTED (L57.0) (see microscopic description) 5:32 PM CDT DERMATOPATHOLOGY LABORATORY at 1732 CDT Clinical History R/O dys nevus. 5:32 PM CDT DERMATOPATHOLOGY LABORATORY Gross Description Specimen A: Received is one formalin filled container labeled with the patient's name and designated right taoist. The specimen consists of a shave biopsy measuring 4g5c4uw. Jar 0. 5:32 PM CDT DERMATOPATHOLOGY LABORATORY Microscopic Description Specimen A. SKIN, right taoist: There is hyperkeratosis. Along the undersurface of the epidermis, there are buds of atypical keratinocytes in a disorderly arrangement. There is prominent pigmentation in some of the keratinocytes. The number of melanocytes, highlighted by MART-1/Melan-A immunohistochemical staining, is only mildly increased. 5:32 PM T DERMATOPATHOLOGY LABORATORY Disclaimer An external and internal positive and negative controls are appropriate for the histochemical, immunohistochemical and immunofluorescence stain(s) in this case (if any), except where stated explicitly. The performance characteristics of the stain(s) cited in this report were developed and its performance characteristic determined by the Dermatopathology Laboratory at [facility], directed by Dr. Isaac Borrero. These tests need not be, and therefore are not, approved by the [place] Food and Drug Administration. The tests are used for clinical purposes. Billing Codes Specimen Charges Stain Charges 89385 1 94476 1 5:32 PM CDT DERMATOPATHOLOGY LABORATORY Embedded Images 5:32 PM CDT DERMATOPATHOLOGY LABORATORY Pathology/Cytolog y TISSUE SPECIMEN FROM SKIN / Unknown 03/29/2021 03/31/2021 8:19 AM CDT us Aris Troncoso MD LAB - PATHOLOGY/CYTOLOGY ORD ERABLES Final Result DERMATOPATHOLOGY LABORATORY [facility] - Department of Dermatology [address] [place] [address], [facility] [phone] documented in this encounter Visit Diagnoses Not on filedocumented in this encounter
--- OUTSIDE RECORDS SUMMARY | 2025-06-09 10:00 | XMS_ITS | Encounter Summary ---
Author Organization [facility] Address [address] [place] [address] Care Team Providers Care Chucking Machine Set Up Operator Name Role Phone Unavailable Primary Care Provider Unavailabl e Encounter Details Date Type Department Care Team (Late st Contact Info) Description 09/25/2017 Lab Requisition [facility] Care DermPath Lab [address] [facility] [place] [address] Aris Troncoso MD [address] [place] [address] Social History Tobacco Use Types Packs/Day Years Used Date Smoking Tobacco: Never Assessed Comments Unknown Sex and Gender Information Value Date Recorded Sex Assigned at Not on file 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 Gender Identity Not on file Sexual Orientation Not on file documented as of this encounter Plan of Treatment Not on file documented as of this encounter Procedures Procedure Name Priority Date/Time Associated Diagnosis Comments DERMATOPATHOLOGY Routine 09/25/2017 12:0 0 AM CDT documented in this encounter Results * DERMATOPATHOLOGY (09/25/2017 12:00 AM CDT) Case Report Dermatopathology Report Case: [id number] Authorizing Provider: Aris Troncoso MD Collected: 09/25/2017 12:00 AM Pathologist: Meggan Hirsch MD Received: 09/25/2017 11:54 AM Specimen: Skin, left proximal extensor ulnar forearm 8 1:57 PM CDT DERMATOPATHOLOGY LABORATORY Final Diagnosis Specimen A. SKIN, left proximal extensor ulnar forearm: BASAL CELL CARCINOMA, SUPERFICIAL MULTIFOCAL (C44.619) NOT PRESENT AT SAMPLED MARGIN 8 1:57 PM CDT DERMATOPATHOLOGY LABORATORY at 1357 CDT Clinical History R/O BCC. Check margins. 1:57 PM CDT DERMATOPATHOLOGY LABORATORY Gross Description Specimen: A: Received is one formalin filled container labeled with the patient's name and designated left proximal extensor ulnar forearm. The specimen consists of a shave biopsy measuring 6g2i0uy.The margin is inked green. Jar 0. 1:57 PM CDT DERMATOPATHOLOGY LABORATORY Microscopic Description Specimen A. SKIN, left proximal extensor ulnar forearm: Attached to the undersurface of the epidermis, there are small aggregates of basaloid cells with a high nuclear to cytoplasmic ratio and peripheral palisading. This lesion is not present at the sampled margin of the specimen. 1:57 PM CDT DERMATOPATHOLOGY LABORATORY Disclaimer An external and internal positive and negative controls are appropriate for the histochemical, immunohistochemical and immunofluorescence stain(s) in this case (if any), except where stated explicitly. The performance characteristics of the stain(s) cited in this report were developed and its performance characteristic determined by the Dermatopathology Laboratory at [facility]. These tests need not be, and therefore are not, approved by the [place] Food and Drug Administration. The tests are used for clinical purposes. Billing Codes Specimen Charges Stain Charges 77116 1 1:57 PM CDT DERMATOPATHOLOGY LABORATORY Embedded Images 1:57 PM CDT DERMATOPATHOLOGY LABORATORY Pathology/Cytolog y TISSUE SPECIMEN FROM SKIN / Unknown 09/25/2017 09/25/2017 11:54 AM CDT us Aris Troncoso MD LAB - PATHOLOGY/CYTOLOGY ORD ERABLES Final Result DERMATOPATHOLOGY LABORATORY [facility] - Department of Dermatology [address] [place] [address], [address]th [place] [address], [facility] [phone] documented in this encounter Visit Diagnoses Not on filedocumented in this encounter
== END 2025-06-09 09:36 | disposition home or self-care (01) ==
PROVIDERS: PCP Family Medicine; Visit Provider Family Medicine
DX: R92.8 Other abnormal and inconclusive findings on diagnostic imaging of breast (principal)
CPT/HCPCS: 76642; 77061; 77065; G0279